=== PATIENT | male | born 1970 | race Caucasian/White ===

== ENCOUNTER 2025-07-02 23:45 | Emergency (ER) | payer MEDICARE, MEDICAID, SELFPAY ==
--- NOTE | 2025-07-02 23:47 | EKG_ITS ---
[facility] Test Date: 2025-07-02 Pat Name: FRANKLYN GALINDO Department: Room: - Gender: Male [employer]ical [employer]er: : [id number] Requested By: Jeff Conway Order Number: [id number] Reading MD: Jeff Conway Measurements Intervals [place] Rate: 88 P: 20 ND: 162 QRS: -5 QRSD: 102 T: 19 QT: 382 QTc: 463 Interpretive Statements SINUS RHYTHM WITH OCCASIONAL ECTOPIC PREMATURE COMPLEXES POSSIBLE ANTERIOR MYOCARDIAL INFARCTION , PROBABLY OLD [30 ms Q WAVE IN V3/V4, OR R < 0.2 mV IN V4] Compared to ECG 09/03/2023 16:02:03 No significant changes /store/S0/[id number]/[id number].pdf
[2025-07-03 00:04] VITALS: BP 209/96; PULSE 91; RESP 19; TEMP 37.4; O2SAT 95
--- NOTE | 2025-07-03 00:23 | EDNOTE_ITS ---
ED General RME/HPI General Chief complaint: Chest Pain Stated complaint: CHEST PRESSURE X THIS AFTERNOON Time Seen by Provider: 07/03/25 00:23 Arrival date/time: 07/02/25 23:45 RME / HPI RME / HPI narrative: 54-year-old male with past medical history of hypertension, hyperlipidemia, chronic venous stasis, paroxysmal atrial fibrillation (on Xarelto) who comes in for an evaluation of chest pain, onset 2:30 PM today, not worse with exertion, located on anterior chest with no radiation. Patient reports that he has had similar episodes of chest pain like this, however he has noticed today's been worsening. He also notes that he noticed that his heart rate has been going up more elevated compared to 60s which it is usually at. He says he takes all his medicines. He said his last follow-up with his business risk consultant, Dr. Brothers was about 5 months ago. He said he had a ultrasound of his heart done recently but does not know of the results. He denies any headache at this time, however does have a history of one. Denies any vomiting, nausea, shortness of breath. He says that his legs swell up at times. Has no other complaints at this time. Related Data Home Medications ?Medication ?Instructions ?Recorded ?Confirmed furosemide 20 mg tablet (Lasix) 20 mg PO BID ##0 05/0605/25/20 spironolactone 25 mg tablet 25 mg PO TID ##0 05/06/09 05/25/20 amiodarone 200 mg tablet (Pacerone) 200 mg PO QDAY #60 tabs 02/28/14 05/25/20 atorvastatin 40 mg tablet 80 mg PO QPM 08/24/18 Previous Rx's ?Medication ?Instructions ?Recorded rivaroxaban 20 mg tablet (Xarelto) 15 mg (0.75 x 20 mg ) PO BID #0 tabs 05/26/20 meclizine 25 mg tablet 25 mg PO BID PRN dizziness # 20 tabs 09/03/23 Allergies Allergy/AdvReac Type Severity Reaction Status Date / Time No Known Allergies Allergy Verified 07/02/25 23:47 Review of Systems Review of Systems Narrative Review of Systems: Constitutional: No fever, chills, fatigue, weakness, weight loss HEENT: No eye pain, vision loss, ear pain, hearing loss, dysphagia, Cardiovascular: +chest pain, + palpitations, no edema, pain with walking Respiratory: No cough, shortness of breath, wheezing GI: No NVD, abdominal pain, constipation, blood in stool, loss of appetite, heartburn Extremities: No presence of pitting edema MSK: No back pain, joint pain, joint swelling Neuro: No dizziness, numbness, weakness, headaches, seizures, tremors Psych: No anxiety, depression ED Exam Narrative Physical exam: General: AAOx3, NAD, obese male HEENT: Moist mucous membranes, conjunctiva clear, EOMI, PERRLA, Cardiovascular: S1, S2, radial pulses +2 bilat, RRR Pulmonary: CTAB bilat no cough, no wheezing GI: No tenderness to light or deep palpitation, no guarding, rigidity, rebound tenderness or distension Extremities: Chronic venous stasis bilaterally, +1 pitting edema in lower extremities bilaterally Neuro: AAOx3, no focal motor or sensory deficits in the UE or LE bilat Psych: Good judgement, thought and behavior Course Quality Measures none Orders Category Date Time Status EKG (ED ONLY) *Do not use* NOW Care 07/02/25 23:47 Completed Insert IV NOW Care 07/03/25 01:01 Active EKG (ED Only) Stat Exams 07/02/25 23:47 Draft XR chest 2V Stat Exams 07/03/25 00:33 Taken B-Type Natriuretic Peptide Stat Lab 07/03/25 01:07 Completed CBC Stat Lab 07/03/25 01:07 Completed Comprehensive Metabolic Panel Stat Lab 07/03/25 01:07 Completed Drug Screen,Urine Stat Lab 07/03/25 01:13 Completed Magnesium Stat Lab 07/03/25 01:07 Completed Partial Thromboplastin Time Stat Lab 07/03/25 01:07 Completed Prothrombin Time with INR Stat Lab 07/03/25 01:07 Completed Troponin I Stat Lab 07/03/25 01:07 Completed Troponin I Stat Lab 07/03/25 04:20 Completed Atorvastatin Calcium [Lipitor] Med 07/03/25 03:18 Discontinued 80 mg PO X1 ONE Labetalol IV [Trandate IV] Med 07/03/25 00:33 Discontinued 10 mg IVP X1 ONE Pantoprazole Inj [Protonix Inj] Med 07/03/25 03:18 Discontinued 40 mg IVP X1 ONE Vital Signs Vital signs: Vital Signs Temperature 99.4 F 07/03/25 00:04 Pulse Rate 91 07/03/25 00:04 Respiratory Rate 19 07/03/25 00:04 Blood Pressure 209/96 H 07/03/25 00:04 Pulse Oximetry (%) 95 07/03/25 00:04 Oxygen Delivery Method Room Air 07/03/25 00:04 Discharge Plan Plan Patient Disposition: HOME (Self Care) Patient condition on transfer: Stable Prescriptions/Referrals Prescriptions/Med Rec: Continued spironolactone 25 MG tablet 25 mg PO TID Qty: 0 furosemide [Lasix] 20 MG tablet 20 mg PO BID Qty: 0 Patient Comments: TAKE ONE TAB TWICE DAILY amiodarone [Pacerone] 200 MG tablet 200 mg PO QDAY Qty: 60 Xarelto 20 mg Tablet 15 mg PO BID Qty: 0 0RF atorvastatin 40 mg Tablet 80 mg PO QPM meclizine 25 mg tablet 25 mg PO BID PRN (Reason: dizziness) Qty: 20 0RF Discontinued Xarelto DVT-PE Treat 30d Start 15 mg (42)- 20 mg (9) tablets,dose pack See Rx Instructions .ROUTE .COMPLEX Qty: 51 0RF Rx Instructions: 15mg PO BID x 21 days then 20mg PO Qday thereafter amiodarone 200 mg Tablet 100 mg PO HS Referrals: Nam Shin MD [Primary Care Provider, Family Practice] - In 1 week Problem List Clinical Impression: Atypical chest pain Patient/Caregiver Discharge Instructions Discharge Activity: activity as tolerated Education Materials: ED Chest Pain, Noncardiac, ED Chest Pain, Uncertain Cause Additional Instructions: Discharge instructions Follow-up with your PCP within 1 week Follow up with your business risk consultant within one week Take your medicines as prescribed Return to ED if your symptoms worsen or return Print Language: Iranian Stand Alone Forms: Sho Award Info., Patient Portal Info Letter Attestation Attestation I, Dr. Burch, have reviewed the history, exam, and assessment of the patient. I have evaluated the patient independently and agree with the plan of care documented by the resident Dr. Montiel. All diagnostic studies were reviewed and discussed. I confirm the diagnosis as documented by the resident. I was present during the Medical Decision Making for this patient. The patient?s plan of care was created between myself and the resident and consistent with our discussion of the patient?s case. MDM Narrative MDM hospital course (for use when minimal MDM required): 0042: Ordered labs including troponin, CBC, CMP, BNP, X-ray. EKG reviewed which does not show any ST depressions or elevation at this time. Labetalol 10 mg x 1 for SBP of 209. 0321: Ordered repeat troponin at 4 AM, give additional Lipitor 80 mg as home med and also Protonix 40 mg. 0501: Repeat troponin wnl, HEART score 2 -> Low risk. Pt medically cleared for discharge, recommend to follow up with PCP and business risk consultant outpatient Medication Administration(s) Medication Administration History Discontinued Medications Atorvastatin Calcium (Atorvastatin Calcium 10 Mg Tablet) 80 mg PO X1 ONE Stop: 07/03/25 03:19 Last Admin: 07/03/25 04:01 Dose: 80 mg Documented By: SOLIS Labetalol HCl (Labetalol Inj 5 Mg/Ml Vial 20 Ml) 10 mg IVP X1 ONE Stop: 07/03/25 00:34 Last Admin: 07/03/25 04:09 Dose: Not Given Documented By: SOLIS Non-Admin Reason: BP 144/87 Pantoprazole Sodium (Pantoprazole Inj 40 Mg Vial) 40 mg IVP X1 ONE Stop: 07/03/25 03:19 Last Admin: 07/03/25 04:03 Dose: 40 mg Documented By: SOLIS Diagnosis Diagnoses ruled out and/or further discussions: ACS, hypertensive emergency, atrial fibrillation, AAA, PE, GERD, costochondritis
--- NOTE | 2025-07-03 00:33 | XR_ITS ---
Examination: PA lateral chest 2 views Technique: Upright PA lateral chest 2 views Date and time: July 03, 2025, 12:56 AM, comparison 04/03/2023 Indications: Onset chest pain today Findings: Normal heart size Ectatic thoracic aorta No pneumonia or pulmonary edema Moderate osteopenia Impression: No pneumonia or pulmonary edema
[2025-07-03 01:01] VITALS: BP 185/123
[2025-07-03 01:15] LABS: Basophils # (Auto) 0.1 Thou/mm3 (0.0-0.2); Basophils % (Auto) 1 % (0-2.5); Eosinophils # (Auto) 0.2 Thou/mm3 (0.0-0.5); Eosinophils % (Auto) 2 % (0-10); Hematocrit 47.9 % (41.0-53.0); Hemoglobin 16.5 g/dL (13.5-16.0); Immature Granulocytes Auto 0.03 Thou/mm3 (0.00-0.00); Lymphocytes # (Auto) 2.4 Thou/mm3 (1.0-4.8); Lymphocytes % (Auto) 29 % (10-50); Mean Corpuscular HGB Conc 34.4 g/dl (31.0-37.0); Mean Corpuscular Hemoglobin 32.3 pg (25.0-35.0); Mean Corpuscular Volume 94 fL (80-100); Monocytes # (Auto) 0.6 Thou/mm3 (0.0-0.8); Monocytes % (Auto) 7 % (0-12); Neutrophils # (Auto) 4.9 Thou/mm3 (1.8-7.7); Neutrophils % (Auto) 61 % (37-80); Nucleated Red Blood Cell # 0.00 Thou/mm3 (0.00-0.00); Nucleated Red Blood Cell % 0 /100 WBC (0); Platelet Count 198 Thou/mm3 (140-440); RDW Standard Deviation 42.9 fL (35.1-43.9); Red Blood Count 5.11 Miln/mm3 (4.50-5.90); White Blood Count 8.1 Thou/mm3 (3.8-10.6)
[2025-07-03 01:29] LABS: Amphetamine/Methamp Scrn,U Negative (Negative); Barbiturate Screen,Urine Negative (Negative); Benzodiazepines Screen,Urine Negative (Negative); Benzoylecgonine Screen, Ur Negative (Negative); Fentanyl Screen,Urine Negative (Negative); Opiate Screen,Urine Negative (Negative); THC Screen,Urine Negative (Negative)
[2025-07-03 01:30] LABS: INR 1.1 (0.9-1.3); Partial Thromboplastin Time 31.7 Seconds (22.0-36.0); Prothrombin Time 12.0 Seconds (9.0-12.2)
[2025-07-03 01:34] LABS: B-Type Natriuretic Peptide < 20 pg/mL (0-100)
[2025-07-03 01:35] LABS: Alanine Aminotransferase 81 U/L (10-49); Albumin, Serum 4.8 gm/dL (3.5-5.0); Albumin/Globulin Ratio 1.9 (1.2-2.2); Alkaline Phosphatase 95 U/L (46-116); Anion Gap 11 (7-16); Aspartate Amino Transferase 45 U/L (0-34); BUN/Creatinine Ratio 12 Ratio (12-20); Bilirubin,Total 0.9 mg/dL (0.3-1.2); Blood Urea Nitrogen 16 mg/dL (9-23); Calcium 9.5 mg/dL (8.3-10.6); Calcium (Corrected) 9.5 mg/dL (8.5-10.1); Carbon Dioxide 26.6 mMol/L (20.0-31.0); Chloride 104 mMol/L (98-107); Creatinine (Component) 1.3 mg/dL (0.6-1.3); Globulin 2.5 gm/dL (2.3-3.5); Glucose 258 mg/dL (74-106); Magnesium 2.1 mg/dL (1.6-2.6); Osmolality,Calculated 293 (275-295); Potassium 4.0 mMol/L (3.4-5.1); Sodium 142 mMol/L (136-145); Total Protein 7.3 gm/dL (5.7-8.2); Troponin I < 0.002 ng/mL (0.0-0.045); eGFR > 60 See Note
[2025-07-03 02:04] VITALS: BP 162/86; PULSE 72; RESP 20; O2SAT 95
[2025-07-03] MEDS: ATORVASTATIN CALCIUM 10 MG TABLET 80 MG PO (04:01)
[2025-07-03 04:48] LABS: Troponin I < 0.020 ng/mL (0.0-0.045)
[2025-07-03 05:07] VITALS: BP 154/88; PULSE 68; RESP 20; TEMP 36.8; O2SAT 98
== END 2025-07-03 05:10 | disposition home or self-care (01) ==
PROVIDERS: Emergency Provider Emergency Medicine; PCP Family Medicine
DX: R07.89 Other chest pain (principal); I10 Essential (primary) hypertension; E78.5 Hyperlipidemia, unspecified; I48.0 Paroxysmal atrial fibrillation; Z79.01 Long term (current) use of anticoagulants; I87.8 Other specified disorders of veins; E66.9 Obesity, unspecified
CPT/HCPCS: 36415; 71046; 80053; 80307; 83735; 83880; 84484; 85025; 85610; 85730; 93005; 96374; 99284; J2470; A9270

== ENCOUNTER 2025-08-10 14:32 | Emergency (ER) | payer MEDICARE, MEDICAID, SELFPAY ==
[2025-08-10 14:33] VITALS: BP 199/113; PULSE 83; RESP 20; TEMP 36.7; O2SAT 91; BMI 61.9
--- NOTE | 2025-08-10 15:21 | XR_ITS ---
Examination: Duplex scan of the lower extremity, unilateral right Date and time of exam: August 10, 2025, 1625 hours INDICATIONS: Right leg swelling redness and pain 6 days Technique: Duplex scan of the extremity veins using B-mode/grayscale imaging and Doppler spectral analysis and color flow Attention is directed to internal echogenicity, compression and augmentation involving these veins, color flow assessment, spectral analysis Findings: Major deep venous structures in the extremity demonstrate normal course and caliber. There is no evidence of deep vein thrombosis. Normal color flow and spectral analysis Impression: Negative for DVT..
--- NOTE | 2025-08-10 15:22 | EDRME_ITS ---
Rapid Medical Screening Exam [facility] Arrival date/time: 08/10/25 14:32 54-year-old male with a history of hyperlipidemia, atrial fibrillation, presents to the emergency room with a chief complaint of right lower extremity swelling, bruising, tenderness x 10 days Patient was sent over by his primary care provider to rule out compartment syndrome. I have greeted and performed a focused initial assessment of this patient. A comprehensive ED assessment and evaluation of the patient, analysis of all test results, and completion of the medical decision making process will be conducted by additional ED providers. Chief Complaint: Extremity Injury, Lower Time Seen by Provider: 08/10/25 15:00 Vital signs: Vital Signs Temperature 98.1 F 08/10/25 14:33 Pulse Rate 83 08/10/25 14:33 Respiratory Rate 20 08/10/25 14:33 Blood Pressure 199/113 H 08/10/25 14:33 Pulse Oximetry (%) 91 L 08/10/25 14:33 Oxygen Delivery Method Room Air 08/10/25 14:33 Vital signs reviewed by provider: Yes Exam: Patient's right lower extremity is erythemic, has mild edema, there is a positive Homans' sign. There is strong dorsalis pedis pulses Clear bilateral lung sounds Clinical Impression: DVT/compartment syndrome/cellulitis
--- NOTE | 2025-08-10 15:32 | PD.EDRME ---
Rapid Medical Screening Exam RME Arrival date/time: 08/10/25 14:32 08/10/25 14:32 54-year-old male with a history of hyperlipidemia, atrial fibrillation, presents to the emergency room with a chief complaint of right lower extremity swelling, bruising, tenderness x 10 days Patient was sent over by his primary care provider to rule out compartment syndrome. I have greeted and performed a focused initial assessment of this patient. A comprehensive ED assessment and evaluation of the patient, analysis of all test results, and completion of the medical decision making process will be conducted by additional ED providers. Chief Complaint: Extremity Injury, Lower Time Seen by Provider: 08/10/25 15:00 Vital signs: Vital Signs Temperature 98.1 F 08/10/25 14:33 Pulse Rate 83 08/10/25 14:33 Respiratory Rate 20 08/10/25 14:33 Blood Pressure 199/113 H 08/10/25 14:33 Pulse Oximetry (%) 91 L 08/10/25 14:33 Oxygen Delivery Method Room Air 08/10/25 14:33 RME Narrative: 08/10/25 14:32 54-year-old male with a history of hyperlipidemia, atrial fibrillation, presents to the emergency room with a chief complaint of right lower extremity swelling, bruising, tenderness x 10 days Patient was sent over by his primary care provider to rule out compartment syndrome. I have greeted and performed a focused initial assessment of this patient. A comprehensive ED assessment and evaluation of the patient, analysis of all test results, and completion of the medical decision making process will be conducted by additional ED providers. Exam: Patient's right lower extremity is erythemic, has mild edema, there is a positive Homans' sign. There is strong dorsalis pedis pulses Clear bilateral lung sounds Clinical Impression: DVT/compartment syndrome/cellulitis
[2025-08-10 15:59] LABS: Basophils # (Auto) 0.0 Thou/mm3 (0.0-0.2); Basophils % (Auto) 1 % (0-2.5); Eosinophils # (Auto) 0.2 Thou/mm3 (0.0-0.5); Eosinophils % (Auto) 3 % (0-10); Hematocrit 43.3 % (41.0-53.0); Hemoglobin 14.9 g/dL (13.5-16.0); Immature Granulocytes Auto 0.02 Thou/mm3 (0.00-0.00); Lymphocytes # (Auto) 1.6 Thou/mm3 (1.0-4.8); Lymphocytes % (Auto) 26 % (10-50); Mean Corpuscular HGB Conc 34.4 g/dl (31.0-37.0); Mean Corpuscular Hemoglobin 32.3 pg (25.0-35.0); Mean Corpuscular Volume 94 fL (80-100); Monocytes # (Auto) 0.4 Thou/mm3 (0.0-0.8); Monocytes % (Auto) 7 % (0-12); Neutrophils # (Auto) 3.8 Thou/mm3 (1.8-7.7); Neutrophils % (Auto) 63 % (37-80); Nucleated Red Blood Cell # 0.00 Thou/mm3 (0.00-0.00); Nucleated Red Blood Cell % 0 /100 WBC (0); Platelet Count 192 Thou/mm3 (140-440); RDW Standard Deviation 45.1 fL (35.1-43.9); Red Blood Count 4.61 Miln/mm3 (4.50-5.90); White Blood Count 6.1 Thou/mm3 (3.8-10.6)
[2025-08-10 16:18] LABS: INR 1.0 (0.9-1.3); Partial Thromboplastin Time 28.0 Seconds (22.0-36.0); Prothrombin Time 10.8 Seconds (9.0-12.2)
[2025-08-10 16:26] LABS: Alanine Aminotransferase 69 U/L (10-49); Albumin, Serum 4.8 gm/dL (3.5-5.0); Albumin/Globulin Ratio 2.3 (1.2-2.2); Alkaline Phosphatase 86 U/L (46-116); Anion Gap 10 (7-16); Aspartate Amino Transferase 74 U/L (0-34); BUN/Creatinine Ratio 11 Ratio (12-20); Bilirubin,Total 0.8 mg/dL (0.3-1.2); Blood Urea Nitrogen 11 mg/dL (9-23); Calcium 9.2 mg/dL (8.3-10.6); Calcium (Corrected) 9.2 mg/dL (8.5-10.1); Carbon Dioxide 29.4 mMol/L (20.0-31.0); Chloride 103 mMol/L (98-107); Creatinine (Component) 1.0 mg/dL (0.6-1.3); Estimated Creatinine Clearance 155.4 mL/min (>60); Globulin 2.1 gm/dL (2.3-3.5); Glucose 251 mg/dL (74-106); Osmolality,Calculated 290 (275-295); Potassium 4.0 mMol/L (3.4-5.1); Sodium 142 mMol/L (136-145); Total Protein 6.9 gm/dL (5.7-8.2); eGFR > 60 See Note
--- NOTE | 2025-08-10 17:37 | EDNOTE_ITS ---
<Statement entered by Joan Perez MD - 08/11/25 16:26> As co-signing physician, I was present and available for consult prn. I concur with the plan and care as documented by the midlevel provider. ED General RME/HPI General Chief complaint: Extremity Injury, Lower Stated complaint: RIGHT LEG SWELLING S/P FALL, R/O COMPARTMENT Time Seen by Provider: 08/10/25 15:00 Arrival date/time: 08/10/25 14:32 CC: Right lower leg pain HPI status post fall the patient has had swelling and tenderness to the leg since then, patient was referred by PCP to rule out compartment syndrome. Patient states he has no unbelievably intense pain in his right foot, he denies any other symptoms stating that the mostly the leg is reddish, tender and the bruising is tender as well. Note: Patient is morbidly obese with a BMI of 62. RME / HPI RME / HPI narrative: 08/10/25 14:32 54-year-old male with a history of hyperlipidemia, atrial fibrillation, presents to the emergency room with a chief complaint of right lower extremity swelling, bruising, tenderness x 10 days Patient was sent over by his primary care provider to rule out compartment syndrome. I have greeted and performed a focused initial assessment of this patient. A comprehensive ED assessment and evaluation of the patient, analysis of all test results, and completion of the medical decision making process will be conducted by additional ED providers. Exam: Patient's right lower extremity is erythemic, has mild edema, there is a positive Homans' sign. There is strong dorsalis pedis pulses Clear bilateral lung sounds Impression: DVT/compartment syndrome/cellulitis Related Data Home Medications ?Medication ?Instructions ?Recorded ?Confirmed furosemide 20 mg tablet (Lasix) 20 mg PO BID ##0 05/0605/25/20 spironolactone 25 mg tablet 25 mg PO TID ##0 05/06/09 05/25/20 amiodarone 200 mg tablet (Pacerone) 200 mg PO QDAY #60 tabs 02/28/14 05/25/20 atorvastatin 40 mg tablet 80 mg PO QPM 08/24/18 Previous Rx's ?Medication ?Instructions ?Recorded rivaroxaban 20 mg tablet (Xarelto) 15 mg (0.75 x 20 mg ) PO BID #0 tabs 05/26/20 meclizine 25 mg tablet 25 mg PO BID PRN dizziness # 20 tabs 09/03/23 Allergies Allergy/AdvReac Type Severity Reaction Status Date / Time No Known Allergies Allergy Verified 08/10/25 14:35 Review of Systems Review of Systems Narrative Review of Systems: GEN: No fever, no chills, no weight loss EYES: No discharge, no visual changes, no pain HEENT: No ear pain, no congestion, no sore throat PULM: No shortness of breath, no cough, no congestion CV: No chest pain, no dyspnea on exertion, no palpitations GI: No nausea, no vomiting, no diarrhea, no pain, no constipation : No frequency, no urgency, no dysuria MUSC/SKEL: No joint pain, no back pain, + lower leg pain SKIN: No rash PSYCH: No hallucinations, no depression HEME/LYMPH: No easy bleeding or bruising tendencies NEURO: No weakness, no headache Past Medical History Past Medical History NEUROLOGIC: Negative Neurological Disorders or Seizures CARDIAC: Positive Cardiac Disorders, Atrial Fibrillation, Hypercholesterolemia, Congestive Heart Failure, Edema and Hypertension RESPIRATORY: Positive Sleep Apnea; Negative Chronic Obstructive Pulmonary Disease (COPD) or Asthma GENITOURINARY: Negative Renal Disease MUSCULOSKELETAL: Negative Musculoskeletal Disorders ENDOCRINE: Positive Diabetes Mellitus Type 2; Negative Diabetes Mellitus Type 1 HEMATOLOGIC: Negative Blood Disorders or Sickle Cell Disease OTHER HISTORY: Negative Blood Transfusions or Anesthesia Reactions Family History FAMILY HISTORY: Positive Family Cardiac Disorders Social History SMOKING STATUS: Never smoker SUBSTANCE USE: does not use ED Exam Narrative Physical exam: [General: Morbidly obese not in cot no acute distress Head normocephalic HEENT: Within acceptable limits Neck is supple nontender Chest equal chest rise nontender to palpation Respiratory: Clear to auscultation no wheezes crackles or rubs CV: Rate rhythm is regular no murmurs rubs or clicks Abdomen is grossly distended secondary to body habitus soft nontender no masses positive bowel sounds all 4 quadrants Back: No CVA tenderness no spinous process tenderness from cervical spine thoracic and lumbar spine Skin: Large areas of ecchymosis to the posterior and lateral aspect of the right lower extremity. Patient has venous stasis skin with no active oozing. Just proximal to the venous stasis is a small area band of erythema that is exquisitely tender. There is no oozing or bleeding from the site either. Otherwise skin is intact no petechiae rash induration ulceration or crepitus Extremities: Moving all extremities against resistance cap refill less than 2 seconds neurosensory intact note: Right lower extremity patient has cap refill less than 2 seconds in the ankle and the toes. They are all warm to touch. Neuro: Awake alert oriented x3 Glascow coma 15 no focal deficits] Course Course Course Narrative: Patient has no pain pallor paresthesias pulselessness or paralysis patient has venous stasis with additional fluid buildup at this time I asked the patient to double his Lasix from 40 to 80 mg a day for 3 days and follow-up with his primary care doctor. Quality Measures none Orders Category Date Time Status US venous doppler LE RT Stat Exams 08/10/25 15:21 Completed CBC Stat Lab 08/10/25 15:29 Completed CMP [Comprehensive Metabolic Panel] Stat Lab 08/10/25 15:29 Completed PT [Prothrombin Time with INR] Stat Lab 08/10/25 15:29 Completed PTT [Partial Thromboplastin Time] Stat Lab 08/10/25 15:29 Completed Vital Signs Vital signs: Vital Signs Temperature 98.1 F 08/10/25 14:33 Pulse Rate 83 08/10/25 14:33 Respiratory Rate 20 08/10/25 14:33 Blood Pressure 199/113 H 08/10/25 14:33 Pulse Oximetry (%) 91 L 08/10/25 14:33 Oxygen Delivery Method Room Air 08/10/25 14:33 Discharge Plan Plan Patient Disposition: HOME (Self Care) Patient condition on transfer: Stable Prescriptions/Referrals Prescriptions/Med Rec: No Action spironolactone 25 MG tablet 25 mg PO TID Qty: 0 furosemide [Lasix] 20 MG tablet 20 mg PO BID Qty: 0 Patient Comments: TAKE ONE TAB TWICE DAILY amiodarone [Pacerone] 200 MG tablet 200 mg PO QDAY Qty: 60 Xarelto 20 mg Tablet 15 mg PO BID Qty: 0 0RF atorvastatin 40 mg Tablet 80 mg PO QPM meclizine 25 mg tablet 25 mg PO BID PRN (Reason: dizziness) Qty: 20 0RF Referrals: Nam Shin MD [Primary Care Provider, Family Practice] - In 1 week Problem List Clinical Impression: Traumatic ecchymosis of right lower leg, Bilateral leg edema Patient/Caregiver Discharge Instructions Other Activity Instructions:: Take 80 mg of Lasix each day for the next 3 days and then return back to your 40 mg a day. Follow-up with your primary care doctor. If there is a worsening of symptoms return the emergency room you do not have compartment syndrome. Education Materials: ED Contusion, Lower Extremity, ED Leg Swelling in Both Legs Print Language: Tristanian Stand Alone Forms: Sho Award Info., Patient Portal Info Letter MDM Clinical Information Provided by: patient Medical Records reviewed [facility] Meds/Rx considered, not ordered None Labs/Rad/Tests considered, not ordered None Chronic Illness/Social Conditions Explain: Morbid obesity EKG EKG not done Labs Labs: interpreted by me Lab(s) Interpretation(s): CBC shows no acute leukocytosis anemia thrombocytopenia Coags within acceptable limits CMP shows a glucose of 251 no other electrolyte imbalances or renal impairment. T. bili of 0.8, AST 74, ALT of 69 Imaging Imaging interpretation: interpreted by me Imaging Interpretation(s): Venous Doppler of the lower leg is unremarkable.
[2025-08-10 17:39] VITALS: BP 179/99; PULSE 70; RESP 20; TEMP 37.2; O2SAT 94
== END 2025-08-10 17:54 | disposition home or self-care (01) ==
PROVIDERS: Nurse Practitioner Family; Emergency Provider Emergency Medicine; PCP Family Medicine
DX: S80.11XA Contusion of right lower leg, initial encounter (principal); E66.01 Morbid (severe) obesity due to excess calories; E78.5 Hyperlipidemia, unspecified; I48.91 Unspecified atrial fibrillation; W19.XXXA Unspecified fall, initial encounter; Z68.44 Body mass index [BMI] 60.0-69.9, adult; Z79.01 Long term (current) use of anticoagulants
CPT/HCPCS: 36415; 80053; 85025; 85610; 85730; 93971; 99283